=== PATIENT | female | born 2000 | race Caucasian/White ===

== ENCOUNTER 2020-04-01 18:46 | Emergency (ER) | payer MEDICAID, SELFPAY ==
[2020-04-01 18:50] VITALS: BP 118/89; PULSE 52; RESP 18; TEMP 36.8; O2SAT 93
--- NOTE | 2020-04-01 19:18 | ED.GENADULT ---
HPI - General Adult General Chief complaint: Skin/Abscess/Foreign Body Stated complaint: allergic reaction Time Seen by Provider: 04/01/20 18:57 Source: patient and family Mode of arrival: ambulatory Limitations: no limitations History of Present Illness HPI narrative: Patient is rash on the face patient has been having these symptoms off and on unsure as to the etiology does note itching for which she has taken Benadryl with no improvement noted irritation around the mouth left thigh and the ears patient on arrival to emergency department is in no distress denies other illness or complaints Related Data Allergies Allergy/AdvReac Type Severity Reaction Status Date / Time amoxicillin Allergy Rash Verified 04/01/20 19:03 Review of Systems Review of Systems: All systems reviewed & are unremarkable except as noted in HPI and below PMFSH Social History Social History (Updated 04/01/20 @ 19:19 by Godfrey Walker PA-C) Smoking status: Never smoker Gender identity (if verbalized by the patient): Female Exam Narrative: Exam Narrative: GENERAL: Well-appearing, well-nourished, and in no acute distress. HEAD: Normocephalic, atraumatic. EYES: PERRLA and EOMI. ENT: Nares clear, no rhinorrhea or epistaxis. Mucous membranes moist. Oropharynx without tonsillar hypertrophy exudate or other lesions. No angioedema in the oropharynx NECK: Supple. No adenopathy or masses. No stridor CHEST: Clear to auscultation. No respiratory distress. No wheezes rales or rhonchi HEART: Regular rate and rhythm. No murmur heard. EXTREMITIES: Normal range of motion. No edema. SKIN: Warm, dry, fine rash around the mouth left IN bilateral ears NEURO: No focal deficits. Alert and oriented x3. PSYCH: Normal mood and affect. Course Course Emergency Course: Patient with rash of unknown etiology was advised that it could be the mass given the distribution that she has been wearing patient will be referred back to primary care for further evaluation Vital Signs Vital signs: Vital Signs Temperature 98.2 F 04/01/20 18:50 Pulse Rate 52 L 04/01/20 18:50 Respiratory Rate 18 04/01/20 18:50 Blood Pressure 118/89 04/01/20 18:50 Pulse Oximetry 93 04/01/20 18:50 Temperature 98.2 F 04/01/20 18:50 Pulse Rate 52 L 04/01/20 18:50 Respiratory Rate 18 04/01/20 18:50 Blood Pressure 118/89 04/01/20 18:50 Pulse Oximetry 93 04/01/20 18:50 Medical Decision Making MDM Narrative Medical decision making narrative: Patient with allergic reaction likely secondary to contact dermatitis potentially from her mass given the distribution felt appropriate for discharge home Vital Signs Vital Signs: Vital Signs Temperature 98.2 F 04/01/20 18:50 Pulse Rate 52 L 04/01/20 18:50 Respiratory Rate 18 04/01/20 18:50 Blood Pressure 118/89 04/01/20 18:50 Pulse Oximetry 93 04/01/20 18:50 Temperature 98.2 F 04/01/20 18:50 Pulse Rate 52 L 04/01/20 18:50 Respiratory Rate 18 04/01/20 18:50 Blood Pressure 118/89 04/01/20 18:50 Pulse Oximetry 93 04/01/20 18:50 Discharge Plan Discharge Clinical Impression: Allergic reaction Patient Disposition: Home, Self-Care Condition: Stable Instructions: Antibiotic Form, Allergies (ED) Additional Instructions: Follow up with your primary care provider within 7 days. Go to ER for shortness of breath, difficulty breathing, chest pain, fever/chills, weakness, nauseau/vomitting, throat tightening or tongue swelling etc. or any other concerns. Take any prescribed medications as directed. If you do not have a drug allergy to tylenol or motrin and can tolerate it then take tylenol or motrin as needed for discomfort/pain. Prescriptions: New famotidine [Pepcid] 20 mg tablet 20 mg PO BID Qty: 10 RF: 0 loratadine [Claritin] 10 mg tablet 10 mg PO DAILY PRN (Reason: allergy symptoms) Qty: 14 RF: 0 Follow-up/Referrals: Herbie Noriega M.D. [Physician]
[2020-04-01] MEDS: FAMOTIDINE 20 MG TABLET PO (19:31)
[2020-04-01] MEDS: hydrOXYzine HCL 25 MG TABLET PO (19:31)
[2020-04-01] MEDS: predniSONE 20 MG TABLET 40 MG PO (19:31)
[2020-04-01 19:39] VITALS: BP 112/64; PULSE 81; RESP 16; TEMP 36.7; O2SAT 100
== END 2020-04-01 19:39 | disposition home or self-care (01) ==
LOC: ANHED 19:35
PROVIDERS: Emergency Provider Emergency Medicine
DX: T78.40XA Allergy, unspecified, initial encounter (principal)
CPT/HCPCS: 99283; A9270; J7512

== ENCOUNTER 2020-04-03 13:01 | Emergency (ER) | payer MEDICAID, SELFPAY ==
[2020-04-03 13:05] VITALS: BP 134/83; PULSE 90; RESP 20; TEMP 36.7; O2SAT 99
--- NOTE | 2020-04-03 13:32 | ED.ALLEREA ---
HPI - Allergic Reaction General Chief complaint: Allergic Reaction Stated complaint: Allergic Reaction Time Seen by Provider: 04/03/20 13:08 Source: patient Mode of arrival: ambulatory Limitations: no limitations History of Present Illness HPI narrative: This is a 19 year old female that presents to the ER for throat itching this morning. Reports history of recurrent rash in the [place]-oral area. Reports she was seen here for this a couple of days ago and has been taking Claritin daily. Reports her rash is improving. Reports today at work she started to feel like her throat was itchy which prompted her to be seen. Denies fever, dysphagia or dyspnea. Related Data Allergies Allergy/AdvReac Type Severity Reaction Status Date / Time amoxicillin Allergy Rash Verified 04/03/20 13:27 Review of Systems Review of Systems: Narrative: CONSTITUTIONAL: Denies fever RESPIRATORY: Denies dyspnea. SKIN: Reports rash and itching. All systems reviewed & are unremarkable except as noted in HPI and below PMFSH Social History Social History (Updated 04/03/20 @ 15:09 by Magdalena Velazquez PA-C) Smoking status: Never smoker Substance use: never Gender identity (if verbalized by the patient): Female Exam Narrative: Exam Narrative: GENERAL: Well-appearing, well-nourished, and in no acute distress. HEAD: Normocephalic, atraumatic. EYES: EOMI. ENT: Nares clear, no rhinorrhea or epistaxis. Mucous membranes moist. No swelling of the lips or throat. Oropharynx without tonsillar hypertrophy exudate or other lesions. Bilateral TMs pearly hodgson non-bulging NECK: Supple. No adenopathy or masses. CHEST: Clear to auscultation. No respiratory distress. No wheezes rales or rhonchi HEART: Regular rate and rhythm. No murmur heard. Normal peripheral pulses. EXTREMITIES: Normal range of motion. No edema. SKIN: Warm, dry. Some scaling around the lips NEURO: No focal deficits. Alert and oriented x3. PSYCH: Normal mood and affect Course Vital Signs Vital signs: Vital Signs Temperature 98.0 F 04/03/20 13:05 Pulse Rate 90 04/03/20 13:05 Respiratory Rate 20 04/03/20 13:05 Blood Pressure 134/83 04/03/20 13:05 Pulse Oximetry 99 04/03/20 13:05 Temperature 98.0 F 04/03/20 13:05 Pulse Rate 90 04/03/20 13:05 Respiratory Rate 20 04/03/20 13:05 Blood Pressure 134/83 04/03/20 13:05 Pulse Oximetry 99 04/03/20 13:05 MDM - Allergic Reaction MDM Narrative Medical decision making narrative: Patient presents to the emergency department for itchy throat. Was concerned she was having an allergic reaction. Airway is patent. No swelling of the lips or throat. Oxygen saturation normal on room air. Patient given dose of steroid and antihistamine in the ED. She then eloped prior to getting her discharge paperwork or any further evaluation or instructions Critical Care Time Critical Care Time Critical Care Time: No Discharge Plan Discharge Clinical Impression: Dermatitis, perioral Patient Disposition: Elopement After Seen by Prov Condition: Stable Prescriptions: No Action famotidine [Pepcid] 20 mg tablet 20 mg PO BID Qty: 10 RF: 0 loratadine [Claritin] 10 mg tablet 10 mg PO DAILY PRN (Reason: allergy symptoms) Qty: 14 RF: 0 Follow-up/Referrals: PHYSICIAN,FOOD SCIENCE TECHNICIAN [Primary Care Provider] -
[2020-04-03] MEDS: FAMOTIDINE 20 MG TABLET PO (13:34)
--- NOTE | 2020-04-03 14:30 | PC.NURSE ---
Note patient is no longer in the room. Per intake personnel pt and the male with her were seen leaving the facility, and thanked her for their service.
== END 2020-04-03 14:30 | disposition left against medical advice (07) ==
PROVIDERS: Emergency Provider Emergency Medicine
DX: L71.0 Perioral dermatitis (principal)
CPT/HCPCS: 96372; 99283; A9270; J1100

== ENCOUNTER 2020-10-06 19:08 | Emergency (ER) | payer BC, SELFPAY ==
[2020-10-06 19:09] VITALS: BP 123/70; PULSE 96; RESP 16; TEMP 37; O2SAT 100
--- NOTE | 2020-10-06 20:38 | ED.GENADULT ---
HPI - General Adult General Chief complaint: Upper Respiratory Infection Stated complaint: SORE THROAT Time Seen by Provider: 10/06/20 19:31 Source: patient Mode of arrival: ambulatory Limitations: no limitations History of Present Illness HPI narrative: Patient presents for evaluation of sore throat. Symptom onset Thursday of this week. She initially experienced a scratchy throat and symptoms progressively worsened. She now reports a pressure in both ears when she swallows, some sinus congestion, and a productive cough of clear sputum. No fever, chills, nausea, vomiting, body aches, diarrhea. She states one of her friends with whom she was spending time at the time of symptom onset tested positive for strep pharyngitis in the last few days. She has a history of mono but this does not feel similar. Surgical history is positive for tonsillectomy Related Data Allergies Allergy/AdvReac Type Severity Reaction Status Date / Time amoxicillin Allergy Rash Verified 10/06/20 20:19 Review of Systems Review of Systems: Narrative: CONSTITUTIONAL: Denies fever, chills, or sweats. EYES: Denies visual changes, redness, or discharge. ENT: Reports sore throat. Reports bilateral ear pressure when swallowing. Denies tinnitus and hearing loss CARDIOVASCULAR: Denies chest pain, palpitations, or edema. RESPIRATORY: Denies cough or dyspnea. GASTROINTESTINAL: Denies abdominal pain, nausea, vomiting, or diarrhea. GENITOURINARY: Denies dysuria or hematuria. SKIN: Denies rash or itching. MUSCULOSKELETAL: Denies back pain, joint pain, or myalgia. NEUROLOGIC: Denies headache, numbness, dizziness, or weakness. PSYCHIATRIC: Denies anxiety or depression. [facility] Past Medical History Medical History (Updated 10/06/20 @ 20:42 by JEFF Hong, ) History of mononucleosis History of tonsillitis Surgical History Surgical History History of tonsillectomy Family History Family History Mother No pertinent past medical history Social History Social History Smoking status: Never smoker Substance use: never Gender identity (if verbalized by the patient): Female Sexual Orientation (if Verbalized by the Patient): Straight or Heterosexual Spiritual care concerns: No Exam Narrative: Exam Narrative: GENERAL: Well-appearing, well-nourished, and in no acute distress. HEAD: Normocephalic, atraumatic. EYES: PERRLA and EOMI. ENT: Nares clear, no rhinorrhea or epistaxis. Mucous membranes moist. Tonsils are surgically absent. Mild posterior pharyngeal erythema without exudate. Uvula is midline. Bilateral TMs pearly hodgson nonbulging NECK: Supple. No adenopathy or masses. No carotid bruits or JVD CHEST: Clear to auscultation. No respiratory distress. No wheezes rales or rhonchi HEART: Regular rate and rhythm. No murmur heard. Normal peripheral pulses. ABDOMEN: Soft, nontender, nondistended, normal active bowel sounds. EXTREMITIES: Normal range of motion. No edema. SKIN: Warm, dry, no rash. NEURO: No focal deficits. Alert and oriented x3. PSYCH: Normal mood and affect. Course Course Emergency Course: This is a 20-year-old female who presents with 3-day history of sore throat. She was recently in the company of her friend who tested positive for tonsillitis. Physical exam is fairly unremarkable. Differential beyond strep would be for gonococcal infection of the throat or mononucleosis. She has a history of mono and this feels dissimilar to symptoms experienced with mono. Given recent sick contact we will treat for strep pharyngitis. She has an allergy to amoxicillin. Will treat with azithromycin. She was advised to return for any declining condition. Patient agreed with plan of care. Vital Signs Vital signs: Vital Signs Temperature 37.0 C 10/06/20 19
[2020-10-06 20:55] VITALS: BP 113/72; PULSE 94; RESP 18; TEMP 37.4; O2SAT 98
== END 2020-10-06 20:55 | disposition home or self-care (01) ==
PROVIDERS: Emergency Provider Nurse Practitioner
DX: J02.9 Acute pharyngitis, unspecified (principal)
CPT/HCPCS: 87081; 87880; 99283

== ENCOUNTER 2021-11-15 10:38 | Emergency (ER) | payer BC, SELFPAY ==
--- NOTE | 2021-11-15 10:40 | ED.FEMALEGU ---
HPI - Female Genitourinary General Chief complaint: Urogenital-Female Stated complaint: Urinary Problem Time Seen by Provider: 11/15/21 10:41 Source: patient and RN notes reviewed History of Present Illness HPI Narrative: Patient is a 21-year-old female presents the urgent care with complaints of a possible UTI. Patient states over the last 3 to 4 days she has had some mild cramping, urinary frequency and dysuria. Patient states that she was on her period and assumed that that is what her symptoms were from. Patient has been taking Azo with her last dose this morning. Denies of any low back pain, nausea, vomiting or fever. States that the symptoms are worse this morning. No other acute complaints. No acute distress noted. Patient aware of the plan of care. Some parts of this dictation were generated by voice recognition software and may contain typographical and/or grammatical inaccuracies. Related Data Allergies Allergy/AdvReac Type Severity Reaction Status Date / Time amoxicillin Allergy Rash Verified 11/15/21 10:49 Review of Systems Review of Systems: CONSTITUTIONAL: Denies fever, chills, or sweats. EYES: Denies visual changes, redness, or discharge. ENT: Denies rhinorrhea, congestion, sore throat, or otalgia. CARDIOVASCULAR: Denies chest pain, palpitations, or edema. RESPIRATORY: Denies cough or dyspnea. GASTROINTESTINAL: Denies abdominal pain, nausea, vomiting, or diarrhea. GENITOURINARY: Reports of dysuria and suprapubic pressure SKIN: Denies rash or itching. MUSCULOSKELETAL: Denies back pain, joint pain, or myalgia. NEUROLOGIC: Denies headache, numbness, or weakness. All other systems reviewed are negative, except as documented in HPI. [facility] Past Medical History Medical History (Updated 11/15/21 @ 10:57 by JEFF Nelson) History of mononucleosis History of tonsillitis Surgical History Surgical History History of tonsillectomy Family History Family History Mother No pertinent past medical history Social History Social History Smoking status: Never smoker Substance use: never Gender identity (if verbalized by the patient): Female Sexual Orientation (if Verbalized by the Patient): Straight or Heterosexual Spiritual care concerns: No Comments At the time of my signature, I reviewed and agree with the nursing past medical, surgical, social, and family history. There is no relevant family history pertinent to the patient complaint. Exam Narrative: GENERAL: This is a well-nourished, well-developed patient, in no apparent distress. HEAD: normocephalic, atraumatic. EYES: PERRL. Sclera clear/white. Vision is grossly intact. EARS: External ears normal NOSE: External nose normal with no obvious nasal discharge, nares without redness, no rhinorrhea. THROAT: Mucous membranes moist NECK: Neck supple CARDIOVASCULAR: Regular rate and rhythm without murmurs, gallops, or rubs. RESPIRATORY: Clear to auscultation. Breath sounds equal bilaterally. No wheezes, rales, or rhonchi. GASTROINTESTINAL: Abdomen soft, mild left-sided suprapubic tenderness, nondistended. Bowel sounds are active. SKIN: warm, intact with no suspicious lesions or rash, good texture and turgor. NEURO: awake, alert, and oriented to person, place and time. There were no obvious focal neurologic abnormalities. EXTREMITIES: No clubbing, cyanosis, or edema. BACK: Negative bilateral CVA tenderness Course Course Level of Care: Express Care Visit Vital Signs Vital signs: Vital Signs Temperature 99 F 11/15/21 10:43 Pulse Rate 89 11/15/21 10:43 Respiratory Rate 16 11/15/21 10:43 Blood Pressure 129/79 11/15/21 10:43 Pulse Oximetry 100 11/15/21 10:43 Oxygen Delivery Room Air 11/15/21 10:43 Temperature 99 F 11/15/21 10:43 Pul
[2021-11-15 10:43] VITALS: BP 129/79; PULSE 89; RESP 16; TEMP 37.2; O2SAT 100
== END 2021-11-15 11:03 | disposition home or self-care (01) ==
PROVIDERS: Emergency Provider Nurse Practitioner Family
DX: N39.0 Urinary tract infection, site not specified (principal)
CPT/HCPCS: 81003; 87077; 87086; 87088; 99213; G0463

== ENCOUNTER 2022-01-26 10:01 | Emergency (ER) | payer BC, SELFPAY ==
[2022-01-26 10:08] VITALS: BP 126/80; PULSE 82; RESP 16; TEMP 37.1; O2SAT 100
--- NOTE | 2022-01-26 10:16 | ED.GENADULT ---
HPI - General Adult General Chief complaint: Dental/Oral Stated complaint: Allergic Reaction Time Seen by Provider: 01/26/22 10:16 Source: patient Mode of arrival: ambulatory Limitations: no limitations History of Present Illness HPI narrative: 21-year-old female patient presents to the [facility] with complaints of a rash to her upper and lower lip that started about 2 days ago. Patient denies any real itching but states it is painful at times. Patient states she has had this rash before and typically it does come and go. Patient states she does get some tingling to her lips before she notices the rash. Patient states she has never been tested for herpes simplex 1 before. Patient states she has had allergy testing done and found that she is allergic to many things in make-up and lipstick so she avoids those things. Patient denies coming into contact with anything that she has been allergic to lately. Patient states she is has been taking some Benadryl and using Benadryl cream to the area but has been not improved. Denies any fevers, body aches or chills. Denies any shortness of breath, trouble breathing or trouble swallowing. Related Data Allergies Allergy/AdvReac Type Severity Reaction Status Date / Time amoxicillin Allergy Rash Verified 01/26/22 10:28 Review of Systems Review of Systems: CONSTITUTIONAL: Denies fever, chills, or sweats. EYES: Denies visual changes, redness, or discharge. ENT: Denies rhinorrhea, congestion, sore throat, or otalgia. CARDIOVASCULAR: Denies chest pain, palpitations, or edema. RESPIRATORY: Denies cough or dyspnea. GASTROINTESTINAL: Denies abdominal pain, nausea, vomiting, or diarrhea. GENITOURINARY: Denies dysuria or hematuria. SKIN: Denies rash or itching. Positive rash to upper and lower lips. MUSCULOSKELETAL: Denies back pain, joint pain, or myalgia. NEUROLOGIC: Denies headache, numbness, or weakness. PSYCHIATRIC: Denies anxiety or depression. [facility] Past Medical History Medical History History of mononucleosis History of tonsillitis Surgical History Surgical History History of tonsillectomy Family History Family History Mother No pertinent past medical history Social History Social History Smoking status: Never smoker Substance use: never Gender identity (if verbalized by the patient): Female Sexual Orientation (if Verbalized by the Patient): Straight or Heterosexual Spiritual care concerns: No Comments At the time of my signature I agree with nursing past medical history, surgical, social, and family history. There is no relevant family history pertinent to the presenting complaint. Exam Narrative: GENERAL: Well-appearing, well-nourished, and in no acute distress. HEAD: Normocephalic, atraumatic. EYES: PERRLA and EOMI. ENT: Nares clear, no rhinorrhea or epistaxis. Mucous membranes moist. NECK: Supple. No lymphadenopathy CHEST: Clear to auscultation. No respiratory distress. HEART: Regular rate and rhythm. No murmur heard. Normal peripheral pulses. ABDOMEN: Soft, nontender, nondistended, normal active bowel sounds. EXTREMITIES: Normal range of motion. No edema. SKIN: Warm, dry, no rash. Patient appears to have a blisterlike rash noted to the upper and lower lips. The upper lip does appear dry with some cracking. There is no active discharge noted to the blisters to the lower lip at this time. NEURO: No focal deficits. Alert and oriented x3. Course Course Level of Care: Express Care Visit Vital Signs Vital signs: Vital Signs Temperature 37.1 C 01/26/22 10:08 Pulse Rate 82 01/26/22 10:08 Respiratory Rate 16 01/26/22 10:08 Blood Pressure 126/80 01/26/22 10:08 Pulse Oximetry 100 01/26/22 10:08 Oxygen Delivery Room Air
== END 2022-01-26 11:13 | disposition home or self-care (01) ==
PROVIDERS: Emergency Provider Nurse Practitioner Family
DX: R21 Rash and other nonspecific skin eruption (principal)
CPT/HCPCS: 87255; 99213; G0463